=== PATIENT | male | born 1990 | race African-American/Black ===

== ENCOUNTER 2016-10-12 22:34 | Emergency (ER) | payer OTHER ==
[2016-10-12 22:50] VITALS: BP 155/70; PULSE 66; TEMP 98; BMI 29.8
--- NOTE | 2016-10-12 23:15 | PDOC ---
History of Present Illness - General Chief Complaint: Laceration Stated Complaint: LT FOOT LAC Time Seen by Provider: 10/12/16 22:59 - History of Present Illness Initial Comments: This 26-year-old man with no significant past medical history presents with an injury to his left foot. Just prior to presentation, as he was drinking wine out of stemmed wineglass, the glass shattered and an edge of the left foot. Patient noted "spurting" of blood after glass cut the patient's mid anterior left foot. After patient attempted to place Band-Aid on the wound, he noticed blood "spurting" from the wound. He then placed a pressure dressing on the wound and proceeded to the emergency room. Patient also notices pain on weightbearing of the foot and inability to extend his toes secondary to pain. Patient is unaware if there was any small shards of glass in the area of the wound. No other injury sustained. Past History - Past Medical History Allergies/Adverse Reactions: Allergies Allergy/AdvReac Type Severity Reaction Status Date / Time No Known Allergies Allergy Unverified 10/12/16 22:42 Home Medications: Ambulatory Orders Cephalexin Monohydrate [Keflex -] 500 mg PO Q8H #15 capsule 10/13/16 Asthma: Yes - Psycho/Social/Smoking Cessation Hx Anxiety: No Suicidal Ideation: No Smoking History: Never smoked Review of Systems - Review of Systems Able to Perform ROS?: Yes Comments:: 12 point review of systems is negative except for what is noted in the history of present illness *Physical Exam - Vital Signs Last Vital Signs Temp Pulse Resp BP Pulse Ox 98 F 66 16 155/70 96 10/12/16 22:42 10/12/16 22:42 10/12/16 22:42 10/12/16 22:42 10/12/16 22:42 - Physical Exam Comments: GENERAL: Adult male, alert and oriented 3, in no acute distress EXTREMITIES: Left foot - 0.5 cm curvilinear full-thickness laceration of the mid dorsum ,oozing Surrounding dorsal forefoot is edematous and tender; patient has pain on active and passive ROM fourth toe Dorsalis pedis pulse strongly palpable at midfoot Distal foot is warm and dry with excellent capillary refill Remainder of the extremity exam is normal NEUROLOGICAL: Cranial nerves II through XII grossly intact. Normal speech. No focal neurological deficits. MUSCULOSKELETAL: Back non-tender to palpation, no CVA tenderness Procedures - Laceration/Wound Repair Left Dorsal Foot Wound Length: to 2.5 cm Wound Explored: clean Wound's Depth, Shape: linear Irrigated w/ Saline: Yes Betadine Prep: No (Hibiclens/ethanol) Anesthesia: 1% Lidocaine Amount of Anesthetic (ccs): 2 Wound Repaired With: Sutures Suture Size/Type: 4:0 Number of Sutures: 2 Layer Closure: No Sterile Dressing Applied: Yes Progress: Area of the left dorsal laceration cleansed with Hibiclens/ethanol and sterilely draped. 2 mL of 1% lidocaine infiltrated into the wound for anesthesia. Wound irrigated with 60 mL of sterile normal saline. Wound edges were closely approximated and wound closed with 2 interrupted sutures of 4-0 nylon. Wound was dressed withsterile gauze Progress Note - Progress Note Progress Note: X-ray study of the left foot showed no evidence of fracture or dislocation. No evidence of foreign body was seen. There was an area of soft tissue swelling over the dorsal aspect of the foot Patient received Boostrix 0.5 mL IM Repair of laceration noted above. Because of the soft tissue swelling and pain on extension of the fourth toe, patient may have injury to the extensor tendon. Exploration of the wound revealed no evidence of tendon disruption with no tendon visualized at the base of the wound. Patient will be started on antibiotic prophylaxis (Keflex 500 mg 3 times a day) Wound was Chaim wrapped and patient placed in a cast shoe. He should follow-up with orthopedic surgeon within the next 48 hours. He should not work (he works in a [place] [facility] [place] and frequently has physical interactions with the resident) until seen by orthopedist *DC/Admit/Observation/Transfer Diagnosis at time of Disposition: Laceration of left foot Qualifiers: Encounter type: initial encounter Qualified Code(s): S91.312A - Laceration without foreign body, left foot, initial encounter - Discharge Dispostion Disposition: HOME Condition at time of disposition: Stable - Prescriptions Prescriptions: Cephalexin Monohydrate [Keflex -] 500 mg PO Q8H #15 capsule - Referrals Referrals: Neida Hernandez [Primary Care Provider] - Dre Cardona MD [Staff Physician] - 3 days - Patient Instructions Printed Discharge Instructions: How to Care for a Laceration After Repair Additional Instructions: Elevate/Chaim wrap to left foot for the next 2 days After 2 days, can remove the original dressing and replace with Band-Aid Use cast shoe until seen by orthopedist No work until seen by orthopedist Call orthopedic office (Dr. Cardona group) Saturday, 10/15 for follow-up within 1-2 days Keflex 500 mg 3 times a day for 5 days Return to ER if you have worsening pain/swelling Have sutures removed in 10 days - Post Discharge Activity Work/School Note: Back to Work
[2016-10-13] MEDS ORDERED: DIPHTH,PERTUSS(ACELL),TET 0.5 ML DISP.SYRIN IM ONE (03:11)
[2016-10-13] MEDS ORDERED: CEPHALEXIN MONOHYDRATE 500 MG CAPSULE (UD) PO ONE (03:12)
[2016-10-13] MEDS ORDERED: CEPHALEXIN MONOHYDRATE 500 MG CAPSULE (UD) ONE (03:13)
== END 2016-10-13 03:34 | disposition home or self-care (01) ==
LOC: FER 22:34
PROC: 0HQNXZZ Repair Left Foot Skin, External Approach (ICD-10-PCS; principal; 2016-10-12)
DX: S91.312A Laceration without foreign body, left foot, initial encounter (principal); W25.XXXA Contact with sharp glass, initial encounter; Y93.89 Activity, other specified; Y92.89 Other specified places as the place of occurrence of the external cause
CPT/HCPCS: 73630-TC-LT; 90715; 99282-25